=== PATIENT | female | born 2000 | race Two or more races ===

== ENCOUNTER 2019-08-15 13:24 | Emergency (ER) | payer MEDICAID ==
[~2019-08-15] VITALS: Ht 162.6 cm; Wt 106.6 kg
[2019-08-15 13:52] VITALS: BP 141/87
[2019-08-15] MEDS ORDERED: ALBUTEROL FS 2.5 MG/3 ML VIAL.NEB ONE (14:17)
[2019-08-15] MEDS ORDERED: ALBUTEROL FS 2.5 MG/3 ML VIAL.NEB NEB ONE (14:30)
[2019-08-15] MEDS ORDERED: predniSONE 20 MG TABLET PO ONE (14:30)
[2019-08-15] MEDS ORDERED: predniSONE 20 MG TABLET ONE (14:39)
== END 2019-08-15 15:20 | disposition home or self-care (01) ==
LOC: ER 13:30
DX: J20.9 Acute bronchitis, unspecified (principal)
CPT/HCPCS: 94640; 99283; J7512